=== PATIENT | male | born 2000 | race Hispanic/Latino ===

== ENCOUNTER 2024-03-01 16:36 | Emergency (ER) | payer SELFPAY ==
[~2024-03-01] VITALS: Ht 162.6 cm; Wt 72.6 kg
[2024-03-01 16:45] VITALS: PULSE 73; RESP 17
[2024-03-01] MEDS: ACETAMINOPHEN 325 MG TAB PO ONE (18:32)
[2024-03-01 18:48] VITALS: TEMP 99.1
[2024-03-01] MEDS ORDERED: LIDOCAINE 1% W/EPINEPHRINE 20 ML VIAL INJ ONE (19:15)
[2024-03-01] MEDS ORDERED: CEPHALEXIN500 MG PO (23:45)
[2024-03-01] MEDS ORDERED: BACITRACIN ZINC 0.9GM TP ONE (23:45)
[2024-03-02 00:59] VITALS: BP 147/76; O2SAT 100
[2024-03-02] MEDS ORDERED: BACITRACIN ZINC 0.9GM TP ONE (01:21)
== END 2024-03-02 00:12 | disposition home or self-care (01) ==
LOC: ER 18:06
DX: R50.9 Fever, unspecified (principal); S81.811A Laceration without foreign body, right lower leg, initial encounter; W26.8XXA Contact with other sharp object(s), not elsewhere classified, initial encounter; Y92.89 Other specified places as the place of occurrence of the external cause
CPT/HCPCS: 99284